=== PATIENT | female | born 1950 ===

== ENCOUNTER 2024-08-08 05:19 | Day surgery (SDC) | payer OTHER ==
[2024-08-02 15:57] VITALS: BP 149/84
[~2024-08-08] VITALS: Ht 167.6 cm; Wt 59.0 kg
[~2024-08-08 05:19] MED LIST: CIPROFLOXACIN IN 5 % DEXTROSE 200 MG/100 ML PIGGYBAG IV SCH
[2024-08-08] MEDS ORDERED: POVIDONE-IODINE 118 ML BOTT TOP ONE (07:28)
[2024-08-08] MEDS ORDERED: BUPIVACAINE HCL/MPF 0.5% 30ML VIAL ONE (07:28)
[2024-08-08] MEDS ORDERED: LIDOCAINE HCL 1%/EPINEPHRINE 20ML VIAL IJ ONE ×2 (07:29→08:15)
[2024-08-08] MEDS ORDERED: BUPIVACAINE HCL 30 ML VIAL IJ ONE (08:15)
[2024-08-08] MEDS ORDERED: TRAM1TAB98 PO (09:06)
[2024-08-08] MEDS ORDERED: CIPRO500 MG PO (09:06)
== END 2024-08-08 10:25 | disposition home or self-care (01) ==
LOC: CIR.AMB 05:19
PROVIDERS: ATTEND Surgery
DX: R15.9 Full incontinence of feces (principal); Z88.0 Allergy status to penicillin; Z88.6 Allergy status to analgesic agent
CPT/HCPCS: 64581; 95972; C1778

== ENCOUNTER 2024-08-22 05:40 | Day surgery (SDC) | payer OTHER ==
[~2024-08-22 05:40] MED LIST changes: +CIPRO500 MG PO; -CIPROFLOXACIN IN 5 % DEXTROSE 200 MG/100 ML PIGGYBAG IV SCH; +CIPROFLOXACIN IN 5 % DEXTROSE 400 MG/200 ML PIGGYBAG IV SCH; +TRAM1TAB98 PO
[2024-08-22] MEDS ORDERED: LIDOCAINE HCL 1%/EPINEPHRINE 20ML VIAL IJ ONE (07:45)
[2024-08-22] MEDS ORDERED: BUPIVACAINE HCL/PF 0.25% 30ML VIAL InF ONE (07:45)
[2024-08-22] MEDS ORDERED: TRAM1TAB98 PO (08:05)
== END 2024-08-22 09:05 | disposition home or self-care (01) ==
LOC: CIR.AMB 05:40
PROVIDERS: ATTEND Surgery
DX: R15.9 Full incontinence of feces (principal)
CPT/HCPCS: 64590; 95972; C1767